=== PATIENT | female | born 1975 | race Caucasian/White ===

== ENCOUNTER 2017-04-15 16:32 | Emergency (ER) | payer MEDICAID ==
[~2017-04-15] VITALS: Ht 160 cm; Wt 76.9 kg
[2017-04-15] MEDS ORDERED: DIPHENHYDRAMINE 50 MG/ML, 1ML IVPush ONE (17:00)
[2017-04-15] MEDS ORDERED: KETOROLAC 30 MG/1 ML IVPush ONE (17:00)
[2017-04-15] MEDS ORDERED: METOCLOPRAMIDE 5 MG/ML, 2ML IVPush ONE (17:00)
[2017-04-15] MEDS ORDERED: SODIUM CHLORIDE FLUSH 10ML SYR IVF ONE (17:00)
[2017-04-15] MEDS ORDERED: SODIUM CHLORIDE 0.9% 1,000ML IVBOLUS ONE (17:00)
[2017-04-15] MEDS ORDERED: KETOROLAC 30 MG/1 ML ONE (17:59)
[2017-04-15] MEDS ORDERED: METOCLOPRAMIDE 5 MG/ML, 2ML ONE (17:59)
[2017-04-15] MEDS ORDERED: DIPHENHYDRAMINE 50 MG/ML, 1ML ONE (18:00)
[2017-04-15] MEDS ORDERED: IBUP-1222 PO (18:20)
[2017-04-15] MEDS ORDERED: RIZA10TA20 PO (18:20)
[2017-04-15 18:21] LABS: HEMOGLOBIN 13.8 g/dL (11.7-16.4)
[2017-04-15 18:33] LABS: BLOOD UREA NITROGEN 14 mg/dL (7-18)
[2017-04-15 19:56] VITALS: BP 138/61
== END 2017-04-15 19:58 | disposition home or self-care (01) ==
LOC: ED 19:35
DX: R51 Headache (principal)
CPT/HCPCS: 36415; 80048; 84703; 85025; 96361; 96374; 96375; 99285; J1200; J1885; J2765; J7030

== ENCOUNTER 2017-07-09 11:15 | Emergency (ER) | payer MEDICAID ==
[~2017-07-09 11:15] MED LIST: IBUP-1222 PO; RIZA10TA20 PO
[2017-07-09 11:17] VITALS: BP 129/88
[2017-07-09 12:08] LABS: RAPID INFLUENZA A Negative (Negative); RAPID INFLUENZA B Negative (Negative)
== END 2017-07-09 12:31 | disposition home or self-care (01) ==
LOC: ED 12:26
DX: J00 Acute nasopharyngitis [common cold] (principal)
CPT/HCPCS: 87400; 99284